=== PATIENT | female | born 1950 | race Caucasian/White ===

== ENCOUNTER 2017-10-30 10:48 | Emergency (ER) | payer MEDICARE, MEDICAID ==
--- NOTE | 2017-10-30 12:37 | EDM.PDOC ---
ED HPI GENERAL MEDICAL PROBLEM - General Chief Complaint: General Stated Complaint: R Foot Pain Time Seen by Provider: 10/30/17 11:00 Source of Information: Reports: Patient History Limitations: Reports: No Limitations, Other (Patient appeared tired when asked if she had taken her medication today she said no but was very defensive) - History of Present Illness INITIAL COMMENTS - FREE TEXT/NARRATIVE: Patient is a 67-year-old female who comes in ER complaining of right foot pain stated that she had fallen and rolled her foot she has ecchymosis to the foot disappeared old patient does have history of chronic lower back pain and is being treated for, reviewed current medications and spoke to patient Onset: Sudden Duration: Hour(s): (States happened around 3 AM), Constant Location: Reports: Lower Extremity, Right Quality: Reports: Ache, Sharp Severity: Moderate (Patient is able to sleep through it) Improves with: Reports: None Worsens with: Reports: Movement Context: Reports: Trauma - Related Data Allergies Allergy/AdvReac Type Severity Reaction Status Date / Time brompheniramine maleate Allergy Anaphylactic Verified 01/03/17 12:02 [From Drixoral] Shock ciprofloxacin [From Cipro] Allergy Itching Verified 01/03/17 12:02 ciprofloxacin HCl Allergy Itching Verified 01/03/17 12:02 [From Cipro] dexbrompheniramine maleate Allergy Anaphylactic Verified 01/03/17 12:02 [From Drixoral] Shock Penicillins Allergy Anaphylactic Verified 01/03/17 12:02 Shock Pork/Porcine Containing Allergy Vomiting Verified 01/03/17 12:02 Products prochlorperazine Allergy Anaphylactic Verified 01/03/17 12:02 [From Compazine] Shock prochlorperazine edisylate Allergy Anaphylactic Verified 01/03/17 12:02 [From Compazine] Shock prochlorperazine maleate Allergy Anaphylactic Verified 01/03/17 12:02 [From Compazine] Shock pseudoephedrine HCl Allergy Anaphylactic Verified 01/03/17 12:02 [From Drixoral] Shock pseudoephedrine sulfate Allergy Anaphylactic Verified 01/03/17 12:02 [From Drixoral] Shock shellfish derived Allergy Diarrhea Verified 01/03/17 12:02 trazodone Allergy Anaphylactic Verified 01/03/17 12:02 Shock Home Meds: Home Meds Albuterol [Ventolin HFA] 2 puff INH Q4H PRN 12/24/15 [History] Ascorbic Acid [Vitamin C] 1,000 mg PO BEDTIME 12/24/15 [History] Cetirizine [ZyrTEC] 10 mg PO BEDTIME PRN 12/24/15 [History] Cholestyramine (With Sugar) [Questran Powder] 0.5 gm PO QAM 12/24/15 [History] Dihydroergotamine Mesylate 1 spray INH ASDIRECTED 12/24/15 [History] HYDROmorphone HCl [Dilaudid] 4 mg PO Q4HR PRN 12/24/15 [History] Ketorolac [Toradol] 60 mg IM ASDIRECTED PRN 12/24/15 [History] LORazepam [Ativan] 2 mg PO BEDTIME 12/24/15 [History] Lisinopril/Hydrochlorothiazide [Lisinopril-Hctz 20-25 mg Tab] 1 tab PO 0800 05/03 [History] Metaxalone [Skelaxin] 1 tab PO Q8HR PRN 12/24/15 [History] Morphine [MS Contin] 30 mg PO BEDTIME 12/24/15 [History] Pramipexole [Mirapex] 0.25 mg PO BEDTIME 12/24/15 [History] Vitamin B Complex 1 tab PO BEDTIME 12/24/15 [History] Albuterol/Ipratropium [DuoNeb 3.0-0.5 MG/3 ML] 3 ml NEB Q4HRRT 08/13/16 [History ] Phenazopyridine [Pyridium] 100 mg PO TID PRN #6 tablet 10/20/16 [Rx] DULoxetine [Cymbalta] 1 cap PO DAILY 01/03/17 [History] Doxepin [SINEquan] 10 mg PO ASDIRECTED 01/03/17 [History] Gabapentin [Neurontin] 300 mg PO TID 01/03/17 [History] Morphine [MS Contin] 15 mg PO DAILY@1200 01/03/17 [History] Morphine [MS Contin] 30 mg PO DAILY 01/03/17 [History] Ondansetron HCl [Ondansetron] 8 mg PO Q6H PRN 02/16/17 [History] Cefprozil 500 mg PO BID #12 tablet 01/04/17 [Rx] Ondansetron [Zofran ODT] 4 mg PO QID PRN #15 tab.dis 01/04/17 [Rx] Past Medical History HEENT History: Reports: Allergic Rhinitis, Impaired Vision, Other (See Below) Other HEENT History: Glasses Cardiovascular History: Reports: Cardiomyopathy, Hypertension, PVD, Other (See Below) Other Cardiovascular History: Diastolic dysfunction venous insufficiency Respiratory History: Reports: Asthma, COPD Gastrointestinal History: Reports: Diverticulosis Genitourinary History: Reports: Acute Renal Failure, Other (See Below) Other Genitourinary History: Acute renal failure secondary to NSAIDs in medications in March 2014, benign renal cysts [employer] History: Reports: Spontaneous , Other (See Below) Other OB/BYN History: Surgical menopause at age 22 secondary to dysfunctional uterine bleeding/? bleeding. SAB x3 during the second trimester with SAB x2 during the first trimester, one premature delivery at 7 1/2 months gestation secondary to fall 7, dyspareunia Musculoskeletal History: Reports: Back Pain, Chronic, Fibromyalgia, Neck Pain, Chronic, Osteoarthritis, Other (See Below) Other Musculoskeletal History: Moderately severe scoliosis, chronic pain syndrome with chronic narcotic use, Neurological History: Reports: Headaches, Chronic, Migraines, Other (See Below) Other Neuro History: restless leg syndrome, chronic pain syndrome, daily severe migraines with chronic narcotic use Psychiatric History: Reports: Addiction, Anxiety, Depression, Other (See Below) Other Psychiatric History: Significant chronic narcotic use Hematologic History: Reports: Blood Transfusion(s) Immunologic History: Reports: Immunosuppression Other Immunologic History: Previous history of non-Hodgkin's lymphoma Oncologic (Cancer) History: Reports: Non-Hodgkin's Lymphoma, Other (See Below) Other Oncologic History: Non-Hodgkin's lymphoma in 1994 Dermatologic History: Reports: None - Past Surgical History GI Surgical History: Reports: Cholecystectomy, Hernia Repair/Other, Kasey Fundoplication Female Surgical History: Reports: D&C, Dilitation & Evacuation, Hysterectomy , Other (See Below) Musculoskeletal Surgical History: Reports: Arthroscopic Procedure, Other (See Below) - Past Imaging History Past Imaging History: Reports: CAT Scan, Ultrasound Social & Family History - Tobacco Use Smoking Status *Q: Never Smoker Second Hand Smoke Exposure: No - Caffeine Use Caffeine Use: Reports: None - Recreational Drug Use Recreational Drug Use: No Drug Use in Last 12 Months: No - Living Situation & Occupation Living situation: Reports: , with Family Occupation: Disabled ED ROS GENERAL - Review of Systems Review Of Systems: See Below Constitutional: Reports: Weakness HEENT: Reports: No Symptoms, Other (Cataract surgery) Respiratory: Reports: No Symptoms Cardiovascular: Reports: No Symptoms Endocrine: Reports: No Symptoms GI/Abdominal: Reports: No Symptoms : Reports: No Symptoms Musculoskeletal: Reports: Back Pain, Foot Pain, Other (Back pain chronic) Skin: Reports: Bruising (Right foot) Neurological: Reports: Difficulty Walking (Secondary to pain and foot) Psychiatric: Reports: No Symptoms Hematologic/Lymphatic: Reports: No Symptoms Immunologic: Reports: No Symptoms ED EXAM, GENERAL - Physical Exam Exam: See Below Exam Limited By: Altered Mental Status (Patient is extremely sleepy states not sleeping for 48 hours) General Appearance: WD/WN Ears: Normal External Exam, Normal Canal, Hearing Grossly Normal, Normal TMs Nose: Normal Inspection, Normal Mucosa, No Blood Throat/Mouth: Normal Inspection, Normal Lips, Normal Teeth, Normal Gums, Normal Oropharynx, Normal Voice, No Airway Compromise Head: Atraumatic, Normocephalic Neck: Normal Inspection, Supple, Non-Tender, Full Range of Motion Respiratory/Chest: No Respiratory Distress, Lungs Clear, Normal Breath Sounds, No Accessory Muscle Use, Chest Non-Tender Cardiovascular: Normal Peripheral Pulses, Regular Rate, Rhythm, No Edema, No Gallop, No JVD, No Murmur, No Rub GI/Abdominal: Normal Bowel Sounds, Soft, Non-Tender, No Organomegaly, No Distention, No Abnormal Bruit, No Mass (Female) Exam: Deferred Rectal (Female) Exam: Deferred Back Exam: Decreased Range of Motion, Muscle Spasm, Vertebral Tenderness Extremities: Normal Range of Motion, Other (Right foot ecchymotic area on the medial aspect great toe this appeared old) Neurological: Normal Cognition, No Motor/Sensory Deficits, Inattentive (Very sleepy), Slow to Respond. No: Sensory/Motor Deficit Psychiatric: Other (Difficult to evaluate secondary to sleepiness and drowsiness ) Skin Exam: Ecchymosis (Right foot) Course - Vital Signs Last Recorded V/S: Last Vital Signs Temp 98.0 F 10/30/17 12:28 Pulse 84 10/30/17 12:28 Resp 20 10/30/17 12:28 BP 119/79 10/30/17 12:28 Pulse Ox 96 10/30/17 12:28 - Orders/Labs/Meds Orders: Active Orders 24 hr Category Date Time Status Ankle 2V Rt [CR] Stat Exams 10/30/17 10:50 Taken Foot 2V Rt [CR] Stat Exams 10/30/17 10:50 Taken Departure - Departure Time of Disposition: 12:59 Disposition: Home, Self-Care 01 Condition: Fair Clinical Impression: Right ankle sprain Qualifiers: Encounter type: initial encounter - Discharge Information Referrals: Deep Paiz MD [Primary Care Provider] - Care Plan Goals: Patient will be discharge home on a [employer] [facility] she is to use her crutches to ambulate she is to continue pain medicines as needed follow-up with primary if not better - My Orders Last 24 Hours: My Active Orders 10/30/17 10:50 Ankle 2V Rt [CR] Stat Foot 2V Rt [CR] Stat - Assessment/Plan Last 24 Hours: My Active Orders 10/30/17 10:50 Ankle 2V Rt [CR] Stat Foot 2V Rt [CR] Stat
[2017-10-30 16:25] VITALS: BP 124/72
== END 2017-10-30 13:23 | disposition home or self-care (01) ==
LOC: LL.ED 10:48
DX: S93.401A Sprain of unspecified ligament of right ankle, initial encounter (principal); S90.31XA Contusion of right foot, initial encounter; I11.9 Hypertensive heart disease without heart failure; J44.9 Chronic obstructive pulmonary disease, unspecified; F32.9 Major depressive disorder, single episode, unspecified; Z79.899 Other long term (current) drug therapy; Z88.0 Allergy status to penicillin; Z88.1 Allergy status to other antibiotic agents; Z88.8 Allergy status to other drugs, medicaments and biological substances; Z91.018 Allergy to other foods; Z91.013 Allergy to seafood; W19.XXXA Unspecified fall, initial encounter
CPT/HCPCS: 73600-RT; 73620-RT; 99283

== ENCOUNTER 2017-11-14 14:24 | Emergency (ER) | payer MEDICARE, MEDICAID ==
[2017-11-14] MEDS ORDERED: Famotidine 20 MG/2 ML SDV IVPUSH ONE ×2 (14:27→15:03)
--- NOTE | 2017-11-14 14:27 | EDM.PDOC ---
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 consultation planned) Condition: Fair Clinical Impression: Hypomagnesemia, Hypokalemia, Mixed anxiety depressive disorder, Renal insufficiency, Cardiac ischemia, Hypothyroidism (acquired), Hyperuricemia, D- dimer, elevated Hypotension Qualifiers: Hypotension type: other hypotension type Qualified Code(s): I95.89 - Other hypotension COPD (chronic obstructive pulmonary disease) Qualifiers: COPD type: COPD with acute lower respiratory infection Qualified Code(s): J44.0 - Chronic obstructive pulmonary disease with acute lower respiratory infection Hypertension Qualifiers: Hypertension type: essential hypertension Qualified Code(s): I10 - Essential ( primary) hypertension Osteoarthritis Qualifiers: Osteoarthritis location: multiple joints Osteoarthritis type: primary Qualified Code(s): M15.0 - Primary generalized (osteo)arthritis Acute renal failure Qualifiers: Acute renal failure type: unspecified Qualified Code(s): N17.9 - Acute kidney failure, unspecified CHF (congestive heart failure) Qualifiers: Congestive heart failure type: unspecified congestive heart failure type Congestive heart failure chronicity: acute Qualified Code(s): I50.9 - Heart failure, unspecified Referrals: Deep Paiz MD [Primary Care Provider] - Forms: ED Department Discharge, Interfacility Transfer [facility] - Problem List & Annotations (1) Cardiac ischemia SNOMED Code(s): 835041188 Code(s): I25.9 - CHRONIC ISCHEMIC HEART DISEASE, UNSPECIFIED Status: Acute Priority: High Current Visit: Yes Onset Date: 11/14/17 Annotation/ Comment:: Newly diagnosed inferolateral cardiac ischemia based on previous EKGs at [facility]. Initial telephone consultation with [facility] at 15:30 hours with subsequent referral to regular providers at [facility], since they normally follow their patients in that facility. Telephone consultation at 15:[address] Burrows, cable engineer at [facility], who is requesting that I contact the [facility] physicians for initial care and evaluation secondary to multiple problems, including hypertension, kidney failure, etc. Subsequent telephone consultation at 15:[address] Ohara, hospitalist at [facility] in [place], who is requesting that I talk with Dr. Coronado, hospitalist at [facility] in [place], with consultation at 16:00 hours. She does accept the patient for further direct admission, workup, and care with no further treatment recommendations given. She was in agreement with our ASA and Brilinta treatment in our facility with chest pain protocol not initiated initially secondary to absence of anginal type symptoms. She also agrees to holding heparin therapy for the time being. Ambulance transfer with building drafting officer accompaniment. (2) Acute renal failure SNOMED Code(s): 88302530 Code(s): N17.9 - ACUTE KIDNEY FAILURE, UNSPECIFIED Status: Acute Priority : High Current Visit: Yes Onset Date: 11/14/17 Annotation/Comment:: Previous history of recurrent renal failure secondary to NSAID use with patient still using Toradol for her chronic headaches per instructions of her regular providers. Probable nephrology consultation by accepting physicians with NSAID use in the future to be avoided at all costs Qualifiers: Acute renal failure type: unspecified Qualified Code(s): N17.9 - Acute kidney failure, unspecified (3) CHF (congestive heart failure) SNOMED Code(s): 54701331 Code(s): I50.9 - HEART FAILURE, UNSPECIFIED Status: Acute Priority: High Current Visit: Yes Onset Date: 11/14/17 Annotation/Comment:: Acute CHF secondary to either acute renal failure and/or newly diagnosed inferolateral cardiac ischemia. Cardiology consultation by accepting providers and further workup depending on her clinical course. IV Lasix was not given in the emergency room secondary to her significant hypotension Qualifiers: Congestive heart failure type: unspecified congestive heart failure type Congestive heart failure chronicity: acute Qualified Code(s): I50.9 - Heart failure, unspecified (4) Hypoalbuminemia SNOMED Code(s): 590543209 Code(s): E88.09 - OTH DISORDERS OF PLASMA-PROTEIN METABOLISM, NEC Status: Acute Priority: Medium Current Visit: No Onset Date: 03/21/16 Annotation /Comment:: Previous history of hypoalbuminemia with current mild hypoproteinemia. Consider nutritional high-protein supplement with caution secondary to her renal disease (5) Hypokalemia SNOMED Code(s): 91846258 Code(s): E87.6 - HYPOKALEMIA Status: Acute Priority: Medium Current Visit: Yes Onset Date: 08/13/16 Annotation/Comment:: IV lactated Ringer's initiated with caution at 100 mL per hour secondary to her CHF and acute renal failure. Continue to observe renal status closely. (6) Hypomagnesemia SNOMED Code(s): 060649407 Code(s): E83.42 - HYPOMAGNESEMIA Status: Chronic Priority: Medium Current Visit: Yes Onset Date: 08/13/16 Annotation/Comment:: Observe for now secondary to acute renal failure as above (7) Hypotension SNOMED Code(s): 80021915 Code(s): I95.9 - HYPOTENSION, UNSPECIFIED Status: Acute Priority: High Current Visit: Yes Onset Date: 11/14/17 Annotation/Comment:: Significant Hypotension, however overall good results with IV lactated Ringer's as above with additional dose of IV Zofran given. Nephrology consultation as above. IV Lasix not given secondary to patient's hypotension Qualifiers: Hypotension type: other hypotension type Qualified Code(s): I95.89 - Other hypotension (8) COPD (chronic obstructive pulmonary disease) SNOMED Code(s): 67213222 Code(s): J44.9 - CHRONIC OBSTRUCTIVE PULMONARY DISEASE, UNSPECIFIED Status : Chronic Priority: Medium Current Visit: Yes Annotation/Comment:: Stable by history with no recent fever or bronchitic type symptoms Qualifiers: COPD type: COPD with acute lower respiratory infection Qualified Code(s): J44.0 - Chronic obstructive pulmonary disease with acute lower respiratory infection (9) Hypertension SNOMED Code(s): 11180457 Code(s): I10 - ESSENTIAL (PRIMARY) HYPERTENSION Status: Chronic Priority : Medium Current Visit: Yes Annotation/Comment:: Hypertension in the past with hypotension today as above Qualifiers: Hypertension type: essential hypertension Qualified Code(s): I10 - Essential (primary) hypertension (10) Mixed anxiety depressive disorder SNOMED Code(s): 800237154 Code(s): F41.8 - OTHER SPECIFIED ANXIETY DISORDERS Status: Chronic Priority: Medium Current Visit: Yes Annotation/Comment:: Significant chronic narcotic use secondary to her chronic pain syndrome with significant lethargy, logorrhea, etc with obvious secondary sedation secondary to her narcotic medications. Overall good response to one dose of IV Narcan as above, however subsequent secondary combativeness, nausea, and recurrent emesis, which did resolve with IV Zofran. Moderate anxiety today with probable depression and symptoms to be closely observed by accepting physicians and regular providers. Chronic narcotic use in the future not advisable in this patient. She would benefit from counseling, adjustment medical therapy, tapering/ discontinuation of narcotic medications, pain management, etc. as above. (11) Renal insufficiency SNOMED Code(s): 579491937 Code(s): N28.9 - DISORDER OF KIDNEY AND URETER, UNSPECIFIED Status: Chronic Priority: Medium Current Visit: Yes Annotation/Comment:: Chronic renal insufficiency in the past (12) D-dimer, elevated SNOMED Code(s): 846945015 Code(s): R79.89 - OTHER SPECIFIED ABNORMAL FINDINGS OF BLOOD CHEMISTRY Status: Acute Priority: High Current Visit: Yes Onset Date: 11/14/17 Annotation/Comment:: No clinical evidence of DVT or PE. Further evaluation by accepting physicians depending on her clinical course. Delay heparin therapy for now as above. (13) Hyperuricemia SNOMED Code(s): 06325199 Code(s): E79.0 - HYPERURICEMIA W/O SIGNS OF INFLAM ARTHRIT AND TOPHACEOUS DIS Status: Acute Priority: Medium Current Visit: Yes Onset Date: Annotation/Comment:: Newly diagnosed. No acute gout type symptoms. Observe for now secondary to her renal failure (14) Hypothyroidism (acquired) SNOMED Code(s): 024595224 Code(s): E03.9 - HYPOTHYROIDISM, UNSPECIFIED Status: Acute Priority: Medium Current Visit: Yes Onset Date: 11/14/17 Annotation/Comment:: Newly diagnosed. Initiation of low-dose Synthroid recommended - Problem List Review Problem List Initiated/Reviewed/Updated: Yes - My Orders Last 24 Hours: My Active Orders 11/14/17 14:27 Oxygen Therapy, ED [RC] CONTINUOUS Peripheral IV Care [RC] . DIRECTED Pulse Oximetry [RC] CONTINUOUS Up With Assistance [RC] PFP Chest 1V Frontal [CR] Stat Sodium Chloride 0.9% [Saline Flush] 10 ml FLUSH ASDIRECTED PRN Obtain Past Medical Record [OM.PC] Urgent Peripheral IV Insertion Adult [OM.PC] Stat Resuscitation Status Stat 11/14/17 14:30 Lactated Ringers [Ringers, Lactated] 1,000 ml IV ASDIRECTED 11/14/17 Breakfast Nothing per Oral Now Diet [DIET] - Assessment/Plan Last 24 Hours: My Active Orders 11/14/17 14:27 Oxygen Therapy, ED [RC] CONTINUOUS Peripheral IV Care [RC] . DIRECTED Pulse Oximetry [RC] CONTINUOUS Up With Assistance [RC] PFP Chest 1V Frontal [CR] Stat Sodium Chloride 0.9% [Saline Flush] 10 ml FLUSH ASDIRECTED PRN Obtain Past Medical Record [OM.PC] Urgent Peripheral IV Insertion Adult [OM.PC] Stat Resuscitation Status Stat 11/14/17 14:30 Lactated Ringers [Ringers, Lactated] 1,000 ml IV ASDIRECTED 11/14/17 Breakfast Nothing per Oral Now Diet [DIET] Assessment:: As above Plan: As above. Extensive precautions were given to the patient and her , who are in agreement with the treatment plan. Ambulance transfer with building drafting officer accompaniment
[2017-11-14] MEDS ORDERED: Lactated Ringers 1,000 ML IV SCH (14:30)
[2017-11-14] MEDS: Sodium Chloride 0.9% 10 ML Syringe FLUSH PRN ×3 (15:00→16:44)
[2017-11-14] MEDS ORDERED: Ticagrelor 90 MG Tab PO ONE (15:02)
[2017-11-14] MEDS ORDERED: Aspirin 81 MG Tab.Chew CHEW ONE (15:02)
[2017-11-14 15:21] LABS: CHLORIDE,CL 96 mmol/L (98-107); SODIUM,NA 136 mmol/L (136-145)
[2017-11-14] MEDS ORDERED: Naloxone 2 MG/2 ML Syringe IVPUSH ONE (15:33)
[2017-11-14] MEDS ORDERED: Ondansetron 4 MG/2 ML SDV IVPUSH ONE ×2 (15:59→16:34)
[2017-11-14 19:19] VITALS: BP 80/51
== END 2017-11-14 17:25 ==
LOC: SUPCPDRO 14:24 → LL.ED 14:24
DX: I95.89 Other hypotension (principal); N17.9 Acute kidney failure, unspecified; I13.0 Hypertensive heart and chronic kidney disease with heart failure and stage 1 through stage 4 chronic kidney disease, or unspecified chronic kidney disease; N18.9 Chronic kidney disease, unspecified; I50.9 Heart failure, unspecified; I25.9 Chronic ischemic heart disease, unspecified; E83.42 Hypomagnesemia; E87.6 Hypokalemia; F41.8 Other specified anxiety disorders; E03.9 Hypothyroidism, unspecified; E79.0 Hyperuricemia without signs of inflammatory arthritis and tophaceous disease; J44.0 Chronic obstructive pulmonary disease with (acute) lower respiratory infection; M15.0 Primary generalized (osteo)arthritis; Z77.22 Contact with and (suspected) exposure to environmental tobacco smoke (acute) (chronic); Z79.899 Other long term (current) drug therapy; Z88.0 Allergy status to penicillin; Z88.1 Allergy status to other antibiotic agents; Z88.8 Allergy status to other drugs, medicaments and biological substances; Z91.013 Allergy to seafood; Z91.018 Allergy to other foods
CPT/HCPCS: 36415; 71010; 80053; 82550; 82553; 83605; 83735; 83880; 84443; 84484; 84550; 85025; 85379; 85610; 85730; 93005; 96361; 96374; 96375; 96376; 99285; A9270; G0480; J2310; J2405; J7050; J7120; 93010; S0028

== ENCOUNTER 2018-03-14 19:24 | Emergency (ER) | payer MEDICARE, MEDICAID ==
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
[2018-03-14 21:21] VITALS: BP 161/97
== END 2018-03-14 21:06 | disposition home or self-care (01) ==
LOC: LL.ED 19:24
DX: S89.91XA Unspecified injury of right lower leg, initial encounter (principal); I10 Essential (primary) hypertension; J44.9 Chronic obstructive pulmonary disease, unspecified; N18.9 Chronic kidney disease, unspecified; Z88.0 Allergy status to penicillin; Z88.8 Allergy status to other drugs, medicaments and biological substances; Z91.018 Allergy to other foods; Z91.013 Allergy to seafood; Z79.899 Other long term (current) drug therapy; Z77.22 Contact with and (suspected) exposure to environmental tobacco smoke (acute) (chronic); W22.8XXA Striking against or struck by other objects, initial encounter
CPT/HCPCS: 29515; 73590-RT; 99282; 99283

== ENCOUNTER 2020-09-10 03:48 | Emergency (ER) | payer MEDICARE, MEDICAID ==
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
[2020-09-10 04:45] LABS: CHLORIDE,CL 104 mmol/L (98-107); SODIUM,NA 141 mmol/L (136-145)
[2020-09-10 04:51] LABS: PTT,PARTIAL THROMBOPLSTIN TIME 23.4 SEC (24.5-32.8)
[2020-09-10] MEDS: cefTRIAXone 1 GM in Sodium Chloride 0.9% 100 ML IV ONE (05:02)
[2020-09-10] MEDS: Sodium Chloride 0.9% 10 ML Syringe FLUSH PRN (05:03)
[2020-09-10 08:33] VITALS: BP 148/95; PULSE 75
== END 2020-09-10 09:55 | disposition home or self-care (01) ==
LOC: LL.ED 03:48
DX: R07.89 Other chest pain (principal); N39.0 Urinary tract infection, site not specified; J44.9 Chronic obstructive pulmonary disease, unspecified; I12.9 Hypertensive chronic kidney disease with stage 1 through stage 4 chronic kidney disease, or unspecified chronic kidney disease; N18.9 Chronic kidney disease, unspecified; M41.9 Scoliosis, unspecified; F41.9 Anxiety disorder, unspecified; F32.9 Major depressive disorder, single episode, unspecified; Z88.8 Allergy status to other drugs, medicaments and biological substances; Z88.1 Allergy status to other antibiotic agents; Z88.0 Allergy status to penicillin; Z91.048 Other nonmedicinal substance allergy status; Z91.018 Allergy to other foods; Z91.013 Allergy to seafood; Z88.5 Allergy status to narcotic agent; Z79.899 Other long term (current) drug therapy
CPT/HCPCS: 36415; 80053; 81001; 82550; 82553; 83735; 83880; 84484; 85025; 85379; 85610; 85730; 87086; 87088; 87186; 93005; 96365; 99285-25; J0696